=== PATIENT | female | born 1945 | race Two or more races ===

== ENCOUNTER 2018-12-19 05:56 | Inpatient (IN) | payer MEDICARE, BC ==
[~2018-12-19] VITALS: Ht 160 cm; Wt 64.0 kg
--- NOTE | 2018-12-19 06:00 | NUR ---
PT BIB [facility]. COMP OF HAVING HIGHBLOOD PRESSURE WHILE AT HOME. NO SOB NOTED. TOOK [place]. NO SOB NOTED. NO ACUTE DISTRESS AT THIS TIME. PT AOX4. AMBULATORY W.SAADIA GHAIT. AWAITING MD ANTUNEZ.
[2018-12-19 06:41] LABS: BASOPHILS % (AUTO) 0.5 % (0.0-2.0); EOSINOPHILS % (AUTO) 0.1 % (0.0-6.0); HEMATOCRIT 39 % (33-45); HEMOGLOBIN 12.8 g/dL (11.5-14.8); LYMPHOCYTES # (AUTO) 1.4 /CMM (0.8-4.8); LYMPHOCYTES % (AUTO) 24.6 % (20.0-44.0); MEAN CORPUSCULAR HGB CONC 33 g/dl (31.0-36.0); MEAN CORPUSCULAR VOLUME 80 fL (82-100); MONOCYTES # (AUTO) 0.4 /CMM (0.1-1.30); MONOCYTES % (AUTO) 6.3 % (2.0-12.0); NEUTROPHILS % (AUTO) 68.5 % (43.0-81.0); PLATELET COUNT (AUTO) 228 /CMM (150-450); RED BLOOD CELL COUNT(AUTO) 4.91 MIL/uL (4.0-5.2); WHITE BLOOD COUNT (AUTO) 5.8 K/uL (4.3-11.0)
[2018-12-19 06:47] LABS: CALCIUM, SERUM 9.2 mg/dL (8.5-10.1); CARBON DIOXIDE 28 mmol/L (21-32); CHLORIDE 105 mmol/L (98-107); CREATININE 0.5 mg/dL (0.6-1.3); GLUCOSE 118 mg/dL (74-106); POTASSIUM 3.5 mmol/L (3.5-5.1); SODIUM SERUM 142 mmol/L (136-145); UREA NITROGEN, BLOOD 9 mg/dL (7-18)
[2018-12-19 06:54] LABS: ALANINE AMINOTRANSFERASE 23 U/L (12-78); ALBUMIN 3.5 g/dL (3.4-5.0); ALKALINE PHOSPHATASE 74 U/L (46-116); ASPARTATE AMINOTRANSFERASE 16 U/L (15-37); BILIRUBIN,DIRECT 0.1 mg/dL (0.0-0.2); BILIRUBIN,TOTAL 0.3 mg/dL (0.2-1.0); TOTAL PROTEIN, SERUM 7.5 g/dL (6.4-8.2)
--- NOTE | 2018-12-19 07:10 | NUR ---
RECEIVED REPORT FROM YESI ARCEO FOR [facility].
--- NOTE | 2018-12-19 08:33 | NUR ---
CALLED FOR TELE BED
[2018-12-19] MEDS ORDERED: SIMV20TA6 PO (08:45)
[2018-12-19] MEDS ORDERED: LEVE500T20 PO (08:45)
[2018-12-19] MEDS ORDERED: LEVE500T9 PO (08:45)
[2018-12-19] MEDS ORDERED: LOSA100T31 PO (08:45)
[2018-12-19] MEDS ORDERED: ASPI-1169 PO (08:45)
[2018-12-19] MEDS ORDERED: AMLO5TAB9 PO (08:45)
[2018-12-19] MEDS ORDERED: ASPIRIN 325 MG TABLET PO ONE (09:00)
[2018-12-19] MEDS ORDERED: NITROGLYCERIN PACKET 1 GM PACKET TD ONE (09:00)
--- NOTE | 2018-12-19 09:08 | NUR ---
BETTYE PAGED ITS SAI
[2018-12-19] MEDS ORDERED: NITROGLYCERIN PACKET 1 GM PACKET ONE (09:12)
[2018-12-19] MEDS ORDERED: ASPIRIN 325 MG TABLET ONE (09:13)
--- NOTE | 2018-12-19 09:56 | NUR ---
GOT [facility] [phone]
[2018-12-19] MEDS ORDERED: MORPHINE SULFATE INJ 2 MG/ML DISP.SYRIN IV PRN ×2 (10:00→10:30)
[2018-12-19] MEDS ORDERED: HYDROCODONE/APAP 5/325MG 1 EACH TABLET PO PRN (10:00)
[2018-12-19] MEDS ORDERED: MAGNESIUM HYDROXIDE 30 ML UDC PO PRN (10:00)
[2018-12-19] MEDS ORDERED: ACETAMINOPHEN 325 MG TABLET PO PRN (10:00)
[2018-12-19] MEDS ORDERED: HYDROMORPHONE INJ 2 MG/ML DISP.SYRIN IV ONE (10:00)
[2018-12-19] MEDS ORDERED: MAG HYDROX/AL HYDROX/SIMETH 30 ML UDC PO PRN (10:00)
[2018-12-19] MEDS ORDERED: ONDANSETRON HCL/PF 4 MG/2 ML VIAL IVP PRN (10:00)
[2018-12-19] MEDS ORDERED: TEMAZEPAM 15 MG CAPSULE PO PRN (10:00)
[2018-12-19] MEDS ORDERED: ONDANSETRON HCL/PF 4 MG/2 ML VIAL IVP ONE (10:00)
--- NOTE | 2018-12-19 10:07 | NUR ---
REPORT GIVEN TO YESI CARSON FOR [facility].
[2018-12-19 10:30] VITALS: BP 121/82
[2018-12-19] MEDS ORDERED: HYDROMORPHONE INJ 0.5 MG/0.5 ML SYRINGE IV PRN (10:30)
--- NOTE | 2018-12-19 10:30 | NUR ---
MAPPING PILOT NOTES RECEIVED PT. A&OX4. PT. WAS TRANSFERRED TO BED SAFELY. PT. HAS A STEADY GAIT. NO S/S OF ACUTE DISTRESS. PT. WAS PLACED ON TELEMETRY MONITORING. VITALS SIGNS WNL. WILL CONTINUE TO ASSESS AND MONITOR.
[2018-12-19] MEDS: PANTOPRAZOLE 40 MG TABLET.DR PO SCH (12:10)
[2018-12-19] MEDS: LOSARTAN POTASSIUM 25 MG TABLET PO SCH (12:15)
[2018-12-19] MEDS: LEVETIRACETAM (250 MG) 250 MG TABLET PO SCH (12:18)
[2018-12-19 13:00] VITALS: BP 121/82
[2018-12-19] MEDS: METOPROLOL TARTRATE 50 MG TABLET PO SCH ×2 (13:27→20:40)
[2018-12-19] MEDS ORDERED: IV NS 0.9% 500 ML IV PRN (15:00)
[2018-12-19] MEDS ORDERED: NITROGLYCERIN 0.4 MG/TAB BOTTLE SL ONE (15:00)
[2018-12-19] MEDS ORDERED: METOPROLOL TARTRATE INJ 5 MG/5 ML AMPUL IVP ONE (15:00)
[2018-12-19] MEDS ORDERED: CT SWABBABLE VALVE TRANS SET 1 EA INFUS.SET MC ONE (15:16)
[2018-12-19] MEDS ORDERED: IV NS 0.9% 250 ML IV ONE (15:16)
[2018-12-19] MEDS ORDERED: IOHEXOL-350 100 ML VIAL IV ONE (15:16)
[2018-12-19] MEDS ORDERED: METOPROLOL TARTRATE INJ 5 MG/5 ML AMPUL ONE (15:33)
[2018-12-19 16:00] VITALS: BP_SYST 122; BP_DIAS 85; BP_DIAS 88
--- NOTE | 2018-12-19 16:45 | NUR ---
ICU/RN: S/P CTA; Case dw Dr Grace; pt received 50mg metoprolol PO, on 1gm Nitro patch prior to arrival. Per MD, max dose for prn metoprolol to maintain hr <60bpm is now 30mg IVP to be administered as 5mg IVP q5 mins. Nitro patch removed; no need for nitro SL per MD. VSS remained stable throughout; transferred back to [facility] with HR in 70's, NSR, SBP in 140's. Report given to YESI Mullins for [facility].
[2018-12-19] MEDS ORDERED: LEVETIRACETAM (250 MG) 250 MG TABLET PO SCH (18:00)
--- NOTE | 2018-12-19 19:49 | NUR ---
RN CLOSING NOTES PT. IS IN BED A&OX4. BREATHING UNLABORED ON ROOM AIR. FAMILY IS AT BEDSIDE. NO S/S OF ACUTE DISTRESS. PT. HAD A CTA PROCEDURE DONE TODAY. PT. HAS A RIGHT UPPER MIDLINE. BED IS IN LOWEST, AND LOCKED POSITION. 2 SIDE RAILS UP, AND INSTRUCTED PT. TO USE CALL LIGHT FOR ASSISTANCE. .ALL NEEDS MET. ENDORSED REPORT TO NURSE.
[2018-12-19 20:00] VITALS: BP 124/78
--- NOTE | 2018-12-19 20:17 | NUR ---
RN NOTES PATIENT IS ALERT AND ORIENTED X4, NO DISTRESS, DENIES CHEST PAIN, ADMITTED TODAY FROM HOME, LABS WNL, TROPONIN X3 NEGATIVE, RIGHT UPPER ARM MIDLINE PATENT, DRESSING DRY AND INTACT, KEPT SAFE, CALL LIGHT WITHIN REACH.
--- NOTE | 2018-12-19 21:10 | NUR ---
Patient lives locally with family. She use a cane as needed with ambulation. She is independent with adl's. Has good family, family will provide ride when discharge. Addendum: 12/19/18 at 2111 by MARKELL GUZMAN RN Amended: Links added.
[2018-12-20] VITALS: BP 129/81
[2018-12-20 05:08] VITALS: BP 121/74
[2018-12-20 06:52] LABS: BASOPHILS % (AUTO) 0.5 % (0.0-2.0); EOSINOPHILS % (AUTO) 0.2 % (0.0-6.0); HEMATOCRIT 37 % (33-45); HEMOGLOBIN 12.1 g/dL (11.5-14.8); LYMPHOCYTES # (AUTO) 1.8 /CMM (0.8-4.8); LYMPHOCYTES % (AUTO) 30.3 % (20.0-44.0); MEAN CORPUSCULAR HGB CONC 33 g/dl (31.0-36.0); MEAN CORPUSCULAR VOLUME 80 fL (82-100); MONOCYTES # (AUTO) 0.4 /CMM (0.1-1.30); MONOCYTES % (AUTO) 7.5 % (2.0-12.0); NEUTROPHILS # (AUTO) 3.6 /CMM (1.8-8.9); NEUTROPHILS % (AUTO) 61.5 % (43.0-81.0); PLATELET COUNT (AUTO) 224 /CMM (150-450); RED BLOOD CELL COUNT(AUTO) 4.67 MIL/uL (4.0-5.2); WHITE BLOOD COUNT (AUTO) 5.8 K/uL (4.3-11.0)
[2018-12-20 07:12] LABS: CHOLESTEROL 161 mg/dL (<200); HDL CHOLESTEROL 64 mg/dL (40-60); LDL 91 mg/dL (0-99); THYROID STIMULATING HORMONE 1.493 uIU/mL (0.358-3.74); TRIGLYCERIDES 65 mg/dL (30-150)
[2018-12-20 07:17] LABS: CALCIUM, SERUM 8.9 mg/dL (8.5-10.1); CARBON DIOXIDE 27 mmol/L (21-32); CHLORIDE 108 mmol/L (98-107); CREATININE 0.6 mg/dL (0.6-1.3); GLUCOSE 97 mg/dL (74-106); MAGNESIUM 1.9 mg/dL (1.8-2.4); PHOSPHORUS 3.6 mg/dL (2.5-4.9); POTASSIUM 3.7 mmol/L (3.5-5.1); SODIUM SERUM 144 mmol/L (136-145); UREA NITROGEN, BLOOD 10 mg/dL (7-18)
--- NOTE | 2018-12-20 07:33 | NUR ---
[employer] OUTLETS MANAGER OPENING NOTES RECEIVED PATIENT IN STABLE CONDITION. IN NO APPARENT DISTRESS. BEDSIDE RAILS ARE UPX2. BED IS LOCKED AND LOWERED. CALL LIGHT IS WITHIN REACH. IV LINE IS INTACT AND PATENT. WILL CONTINUE TO MONITOR PATIENT.
[2018-12-20 08:00] VITALS: BP 123/73
[2018-12-20] MEDS: LEVETIRACETAM (250 MG) 250 MG TABLET PO SCH (08:15)
[2018-12-20] MEDS: LOSARTAN POTASSIUM 25 MG TABLET PO SCH (08:19)
[2018-12-20] MEDS: PANTOPRAZOLE 40 MG TABLET.DR PO SCH (08:20)
[2018-12-20 08:21] VITALS: BP 123/73
[2018-12-20] MEDS: METOPROLOL TARTRATE 50 MG TABLET PO SCH (08:21)
[2018-12-20] MEDS ORDERED: ASPIRIN 81 MG TAB.CHEW PO SCH (09:00)
[2018-12-20] MEDS ORDERED: SIMVASTATIN 20 MG TABLET PO SCH (09:00)
[2018-12-20] MEDS ORDERED: AMLODIPINE BESYLATE 5 MG TABLET PO SCH (09:00)
--- NOTE | 2018-12-20 13:35 | NUR ---
[employer] CLOSING NOTES PATIENT DISCHARGED IN STABLE CONDITION. IN NO APPARENT DISTRESS. IV LINE AND ID BAND WAS REMOVED. ALL NEEDS WERE MET. PRESCRIPTIONS WERE GIVEN TO THE PATIENT. FOLLOW UP APPOINTMENT WITH STOCK WORKER AND [facility] WERE GIVEN. EXITCARE WAS SIGNED AND GIVEN TO THE PATIENT. PROVIDED CD OF XRAY EXAMS TO THE PATIENT. PATIENT ESCORTED OUT OF THE FACILITY VIA WHEELCHAIR BY CLINICAL DATA RESEARCH JALEN. PATIENT WILL BE DRIVEN HOME BY FAMILY MEMBER.
== END 2018-12-20 14:00 | disposition home or self-care (01) | DRG 206 ==
LOC: ER 05:58 → TELE 10:04 → MED 12-20 08:46
PROVIDERS: ADMIT Nurse Practitioner Acute Care; ATTEND Nurse Practitioner Acute Care
PROC: 05H533Z Insertion of Infusion Device into Right Subclavian Vein, Percutaneous Approach (ICD-10-PCS; principal; 2018-12-19)
PROC: B546ZZA Ultrasonography of Right Subclavian Vein, Guidance (ICD-10-PCS; 2018-12-19)
DX: M94.0 Chondrocostal junction syndrome [Tietze] (principal); I69.351 Hemiplegia and hemiparesis following cerebral infarction affecting right dominant side; I10 Essential (primary) hypertension; G40.909 Epilepsy, unspecified, not intractable, without status epilepticus; E78.5 Hyperlipidemia, unspecified; Z86.011 Personal history of benign neoplasm of the brain
CPT/HCPCS: 36415; 36569; 70450-TC; 71045-TC; 75574; 80048-TC; 80061-TC; 80076-TC; 83735-TC; 84100-TC; 84443-TC; 84484-TC; 85025-TC; 85730-TC; 87081-TC; G0378; J3490; J7050; Q9967